=== PATIENT | male | born 1955 | race Caucasian/White ===

== ENCOUNTER 2017-08-01 04:30 | Inpatient (IN) | payer OTHER, MEDICAID ==
[~2017-08-01] VITALS: Ht 175.3 cm; Wt 79.4 kg
--- NOTE | 2017-08-01 04:47 | NUR ---
BIB [facility]. PT A/OX2 CONFUSED/ LETHARGIC. C/C OF RIGHT KNEE PAIN. SECONDARY FROM TRIP AND FALL FROM STREET [place]. NEGATIVE LOC. NEG N/V. PT RECALLS FULL EVENT. NEGATIVE DISTRESS. NEG SOB. VSS. PT STABLE CONDITION. WILL CONTINUE TO MONITOR. SAFETY MEASURES IN PLACE. CALL LIGHT WITHIN REACH.
--- NOTE | 2017-08-01 05:10 | NUR ---
PT UNDERGOING CT SCAN
--- NOTE | 2017-08-01 05:40 | NUR ---
PT STABLE CONDITION. A/O X3. VSS. NEG N/V. NEG SOB. SAFETY MEASURES IN PLACE. CALL LIGHT WITHIN REACH.
[2017-08-01] MEDS ORDERED: LEVO150T8 PO (05:54)
[2017-08-01 06:03] LABS: EOSINOPHILS % (AUTO) 1.6 % (0.0-6.0); HEMATOCRIT 31 % (39-51); HEMOGLOBIN 10.4 g/dL (13.5-17.5); LYMPHOCYTES # (AUTO) 0.9 /CMM (0.8-4.8); LYMPHOCYTES % (AUTO) 28.3 % (20.0-44.0); MEAN CORPUSCULAR HGB CONC 34 g/dl (31.0-36.0); MEAN CORPUSCULAR VOLUME 90 fL (80-96); MONOCYTES # (AUTO) 0.3 /CMM (0.1-1.30); MONOCYTES % (AUTO) 10.3 % (2.0-12.0); NEUTROPHILS # (AUTO) 1.8 /CMM (1.8-8.9); NEUTROPHILS % (AUTO) 58.8 % (43.0-81.0); PLATELET COUNT (AUTO) 72 /CMM (150-450); RDW COEFFICIENT OF VARIATION 17.1 (11.5-15.0); RED BLOOD CELL COUNT(AUTO) 3.44 MIL/uL (4.5-6.0)
--- NOTE | 2017-08-01 06:20 | NUR ---
PT STABLE CONDITION. A/O X3. VSS. NEG N/V. NEG SOB. SAFETY MEASURES IN PLACE. CALL LIGHT WITHIN REACH.
[2017-08-01 06:44] LABS: BAND % (MANUAL) 1 % (0.0-5.0); EOSINOPHILS % (MANUAL) 2 % (0-4); LYMPHOCYTES % (MANUAL) 32 % (16-48); MONOCYTES % (MANUAL) 5 % (0-11.0); NEUTROPHILS % (MANUAL) 60 (42-76)
--- NOTE | 2017-08-01 06:50 | NUR ---
PT STABLE CONDITION. A/O X3. VSS. NEG N/V. NEG SOB. SAFETY MEASURES IN PLACE. CALL LIGHT WITHIN REACH.
[2017-08-01 07:07] LABS: CALCIUM, SERUM 8.4 mg/dL (8.5-10.1); CREATININE 0.6 mg/dL (0.6-1.3); POTASSIUM 3.4 mmol/L (3.5-5.1)
[2017-08-01] MEDS ORDERED: ACETAMINOPHEN 325 MG TABLET PO PRN (08:30)
[2017-08-01] MEDS ORDERED: MAGNESIUM HYDROXIDE 30 ML UDC PO PRN (08:30)
[2017-08-01] MEDS ORDERED: ZOLPIDEM TARTRATE 5 MG TABLET PO PRN (08:30)
[2017-08-01] MEDS ORDERED: HYDROCODONE/APAP 5/325MG 1 EACH TABLET PO PRN (08:30)
[2017-08-01] MEDS ORDERED: ONDANSETRON HCL/PF 4 MG/2 ML VIAL IVP PRN (08:30)
[2017-08-01] MEDS ORDERED: MORPHINE SULFATE INJ 4 MG/ML DISP.SYRIN IV PRN (08:30)
[2017-08-01] MEDS ORDERED: Z GUARD REMEDY 2 OZ OINT TP PRN (08:30)
[2017-08-01] MEDS ORDERED: MAG HYDROX/AL HYDROX/SIMETH 30 ML UDC PO PRN (08:30)
--- NOTE | 2017-08-01 10:30 | NUR ---
MS RN RECEIVED A NEW ADMISSION FROM ER, A 61 YEAR OLD MALE, AWAKE, ALERT,ORIENTED X3,NOT IN ANY FORM DISTRESS, RESPIRATIONS EVEN AND UNLABORED, NO SOB NOTED. LUNGS ARE CLEAR, ABDOMEN SOFT,POSITIVE BOWEL SOUNDS DENIES PAIN AT THIS TIME, WILL MONITOR PATIENT'S CONDITION.
[2017-08-01] MEDS: LEVOTHYROXINE SODIUM 75 MCG TABLET PO SCH (10:39)
--- NOTE | 2017-08-01 11:00 | NUR ---
MS ADRIEN WAS SEEN BY OLI UREÑA/ ORDERS MADE AND CARRIED OUT.
[2017-08-01 11:30] VITALS: BP 134/86
[2017-08-01 16:00] VITALS: BP 105/69
--- NOTE | 2017-08-01 18:46 | NUR ---
MS RN ON BED,NO DISTRESS NOTED.
--- NOTE | 2017-08-01 19:35 | NUR ---
MS RN NOTE RECEIVED PATIENT FROM DAY SHIFT, PATIENT IS ALERT AND ORIENTEDX3, NO S/S OF RESPIRATORY DISTRESS AND DENIES PAIN AT THIS TIME. IV ON RIGHT FA IS PATENT AND INTACT, SL ONLY. SRX2, BED IN LOW POSITION, CALL LIGHT WITHIN REACH, WILL CONTINUE TO MONITOR PATIENT.
[2017-08-01 20:00] VITALS: BP 119/73
[2017-08-02 06:02] LABS: BASOPHILS % (AUTO) 0.5 % (0.0-2.0); EOSINOPHILS % (AUTO) 3.2 % (0.0-6.0); HEMATOCRIT 31 % (39-51); HEMOGLOBIN 10.9 g/dL (13.5-17.5); LYMPHOCYTES % (AUTO) 29.3 % (20.0-44.0); MEAN CORPUSCULAR HGB CONC 35 g/dl (31.0-36.0); MEAN CORPUSCULAR VOLUME 89 fL (80-96); MONOCYTES # (AUTO) 0.4 /CMM (0.1-1.30); MONOCYTES % (AUTO) 11.3 % (2.0-12.0); NEUTROPHILS # (AUTO) 1.9 /CMM (1.8-8.9); NEUTROPHILS % (AUTO) 55.7 % (43.0-81.0); PLATELET COUNT (AUTO) 78 /CMM (150-450); RDW COEFFICIENT OF VARIATION 17.5 (11.5-15.0); RED BLOOD CELL COUNT(AUTO) 3.52 MIL/uL (4.5-6.0); WHITE BLOOD COUNT (AUTO) 3.5 K/uL (4.3-11.0)
[2017-08-02 06:19] LABS: CALCIUM, SERUM 8.6 mg/dL (8.5-10.1); CREATININE 0.5 mg/dL (0.6-1.3); MAGNESIUM 1.6 mg/dL (1.8-2.4); PHOSPHORUS 3.8 mg/dL (2.5-4.9); POTASSIUM 3.4 mmol/L (3.5-5.1)
--- NOTE | 2017-08-02 06:56 | NUR ---
MS RN NOTE PATIENT IS RESTING IN BED COMFORTABLY, NO ACUTE EVENT NOTED THROUGHOUT THE SHIFT. IV ON LEFT WRIST IS PATENT AND INTACT, SL ONLY. MORNING CARE RENDERED. WILL ENDORSE TO DAY SHIFT NURSE FOR HARVEY.
--- NOTE | 2017-08-02 07:43 | NUR ---
MS RN NOTES PATIENT RECEIVED RESTING INSIDE ROOM, SLEEPING INTERMITTENTLY. EASILY AROUSABLE THROUGH VERBAL AND TACTILE STIMULI. BREATHING EVEN AND UNLABORED. NO SOB OR ACUTE DISTRESS NOTED. PATIENT DENIES ANY PAIN OR DISCOMFORT AT THIS TIME. IV SITE INTACT AND PATENT, NO BLEEDING NOTED AT THIS TIME. WILL CONTINUE TO MONITOR. MAINTAINED FALL PRECAUTIONS, BED LOCKED AND IN LOW POSITION. BILATERAL UPPER SIDE RAILS UP AND LOCKED. BED ALARM ON. CALL LIGHT WITHIN EASY REACH
[2017-08-02 08:00] VITALS: BP 122/79
[2017-08-02] MEDS: LEVOTHYROXINE SODIUM 75 MCG TABLET PO SCH (08:16)
[2017-08-02 09:03] LABS: BAND % (MANUAL) 1 % (0.0-5.0); EOSINOPHILS % (MANUAL) 3 % (0-4); LYMPHOCYTES % (MANUAL) 25 % (16-48); MONOCYTES % (MANUAL) 15 % (0-11.0); NEUTROPHILS % (MANUAL) 56 (42-76)
[2017-08-02] MEDS ORDERED: POTASSIUM CHLORIDE 20 MEQ TAB.PRT.SR PO SCH (10:00)
[2017-08-02] MEDS ORDERED: MAGNESIUM OXIDE 400 MG TABLET PO ONE (10:30)
--- NOTE | 2017-08-02 13:00 | NUR ---
MS RN NOTES PATIENT INTERVIEWED REGARDING HOME SITUATION. PATIENT UNABLE TO GIVE EXACT ADDRESS. ASKED PATIENT IF HE HAS FAMILY, PATIENT VERBALIZED "I HAVE BROTHERS IN [place]" BUT IS UNABLE TO PROVIDE INFORMATION ON SAID BROTHERS. ASKED IF PATIENT HAS MEANS OF TRANSPORTATION GOING HOME, PATIENT VERBALIZED, "JUST TURN AROUND AND GO HOME". UNABLE TO OBTAIN FURTHER INFORMATION REGARDING LIVING SITUATION. WILL CONTINUE TO MONITOR
[2017-08-02 16:00] VITALS: BP 112/69
--- NOTE | 2017-08-02 16:17 | NUR ---
MS RN NOTES PATIENT SEEN AND EXAMINED BY DR. BAIRD WITH PLAN FOR DISCHARGE IF CT SHOWS NO NEW PATHOLOGY. VERIFIED WITH DR. BAIRD THAT PATIENT WAS FOUND ON THE STREET PER ER REPORT. PATIENT UNABLE TO GIVE DETAILS ON HIS HOME. VERBALIZED HE LIVES BY HIMSELF. DR. BAIRD WITH ORDER TO HOLD DC AND HAVE SOCIAL SERVICE CONSULT. ORDERS NOTED AND CARRIED OUT. PATIENT MADE AWARE AND VERBALIZED UNDERSTANDING.
--- NOTE | 2017-08-02 18:37 | NUR ---
MS RN NOTES PATIENT RESTING INSIDE ROOM, AWAKE, ALERT AND ORIENTED WITH PERIODS OF FORGETFULNESS. VERBALLY RESPONSIVE AND RESPONDS TO VERBAL AND TACTILE STIMULI. ABLE TO FOLLOW SIMPLE INSTRUCTIONS. PATIENT BREATHING EVEN AND UNLABORED. NO SOB OR ACUTE DISTRESS NOTED AT THIS TIME. PATIENT AFEBRILE, SKIN DRY AND WARM TO TOUCH. NO CHANGES IN LOC NOTED AT THIS TIME. PATIENT HELMET ON, NOTED WITH EPISODES OF PATIENT REMOVING HELMET, REMINDED PATIENT SAFETY MEASURES AND SAFE USE OF EQUIPMENT. REMINDED REGARDING CALL LIGHT SYSTEM AND VERBALIZED UNDERSTANDING. WILL ENDORSE TO INCOMING SHIFT FOR HARVEY. BED LOCKED AND IN LOW POSITION. BILATERAL UPPER SIDE RAILS UP AND LOCKED. BED ALARM ON. CALL LIGHT WITHIN EASY REACH
--- NOTE | 2017-08-02 19:15 | NUR ---
MS RN OPENING NOTES: RECEIVED PT IN BED AND IS AWAKE AT THIS TIME. PT IS A/OX2. BED ALARM ACTIVATED. PT HAS IV AND IS INTACT. CALL LIGHT WITHIN PT'S REACH. BED KEPT IN LOW, LOCKED POSITION, AND SIDE RAILS X 3UP. WILL CONTINUE TO MONITOR PT.
[2017-08-02 20:05] VITALS: BP 146/86
--- NOTE | 2017-08-03 06:18 | NUR ---
MS RN CLOSING NOTES: ALL NEEDS WERE ATTENDED AND ANTICIPATED FOR. PT KEPT CLEAN, DRY, AND COMFORTABLE. PT RESTING IN BED COMFORTABLY. PT AWAKE AND IS CONFUSED. PT IS A/OX1. BED ALARM ACTIVATED. BED KEPT IN LOW, LOCKED POSITION, AND SIDE RAILS X 2UP. IV REMAINS INTACT. WILL ENDORSE TO AM NURSE FOR HARVEY.
[2017-08-03 07:05] LABS: CALCIUM, SERUM 8.7 mg/dL (8.5-10.1); CREATININE 0.5 mg/dL (0.6-1.3); MAGNESIUM 1.8 mg/dL (1.8-2.4); POTASSIUM 3.7 mmol/L (3.5-5.1)
--- NOTE | 2017-08-03 07:22 | NUR ---
MS RN NOTES RECEIVED PATIENT RESTING, EASILY AROUSABLE THROUGH VERBAL AND TACTILE STIMULI. BREATHING EVEN AND UNLABORED. NO SOB OR ACUTE DISTRESS NOTED. PATIENT DENIES ANY PAIN OR DISCOMFORT AT THIS TIME. IV SITE INTACT AND PATENT, NO BLEEDING NOTED AT THIS TIME. WILL CONTINUE TO MONITOR. MAINTAINED FALL PRECAUTIONS, BED LOCKED AND IN LOW POSITION. BILATERAL UPPER SIDE RAILS UP AND LOCKED. BED ALARM ON. CALL LIGHT WITHIN EASY REACH. WILL CONTINUE TO MONITOR ACCORDINGLY
[2017-08-03 08:00] VITALS: BP 118/76
[2017-08-03] MEDS: LEVOTHYROXINE SODIUM 75 MCG TABLET PO SCH (08:12)
--- NOTE | 2017-08-03 10:00 | NUR ---
RN NOTES SOCIAL SERVICE, DIONICIO AT BEDSIDE TALKING TO PATIENT.
--- NOTE | 2017-08-03 12:35 | NUR ---
Social service consult requested by Dr. Reed for possible homelessness. Pt. is a 61 year old male who was admitted to [facility] for Intraparenchymal hemorrhage of brain. DIANA met with pt. bedside. Pt. is alert and oriented x2. Pt. appears disheveled and had a strong urine odor. Pt. is unable to provide accurate information. When DIANA asked pt. if he is homeless, pt. stated no. However, pt. is unable to provide any address or location of his home. Pt. states he lives alone and continues to insist that he is not homeless. Pt. states he has a brother named Chris Martini but is unable to provide any contact information. DIANA inquired with pt. if he has his cellphone. Pt. stated he left it at home. DIANA called missing persons and spoke to Detective Ling to inquire if there is a missing persons filed for this pt. Detective Ling informed SW there is no missing persons filed on this pt, however the last address for pt. in 2017 shows [id number], [place]. Detective Ling also informed DIANA that it seems that pt. has multiple warrants as well. Detective Ling will email DIANA a photo to confirm if it is the pt. IF so, Detective Ling will send SW the DL# for the patient. DIANA also found a prescription bottle in pt's belongings with information to [facility] . DIANA got consent from pt. to contact [facility]. DIANA gave the information to shoe parts caser [employer]ash[employer] to follow up with the [place]. Addendum: 08/03/17 at 1423 by DIONICIO ORTIZ Detective Ling sent DIANA a photo to confirm if it is the pt. DIANA confirmed with Detective Ling that the photo matches the patient. Detective Ling informed DIANA that pt. has several warrants for misdemeanors. Detective Ling gave DIANA pt's DL#[id number] but was unable to provide social security number for the pt. stating they didn't have one.
[2017-08-03 16:00] VITALS: BP 116/71
--- NOTE | 2017-08-03 19:05 | NUR ---
MS RN OPENING NOTES: RECEIVED PT IN BED AND IS LAYING DOWN AT THIS TIME. PT IS A/OX1 TO SELF. PT IS CONFUSED. BED ALARM NOT WORKING. PT IS FALL RISK. IV REMAINS INTACT AND IS S/L. CALL LIGHT WITHIN PT'S REACH. BED KEPT IN LOW, LOCKED POSITION, AND SIDE RAILS X 2UP. WILL CONTINUE TO MONITOR PT.
--- NOTE | 2017-08-03 19:15 | NUR ---
RN CLOSING NOTES PATIENT IN STABLE CONDITION. ALL NEEDS ATTENDED AND PROVIDED. KEPT PATIENT SAFE AND COMFORTABLE. BED ALARM ON, BED IN LOW/LOCKED POSITION, SIDERAILS UPX2, CALL LIGHT IN REACH. ENDORSED TO NIGHT RN FOR HARVEY.
[2017-08-03 20:00] VITALS: BP 129/74
--- NOTE | 2017-08-04 06:37 | NUR ---
MS RN CLOSING NOTES: ALL NEEDS WERE ATTENDED AND ANTICIPATED FOR. PT KEPT CLEAN, DRY, AND COMFORTABLE. PT HAS HIS HELMET ON AT THIS TIME. PT RESTING IN BED COMFORTABLY. PT IS A/O X 1 TO SELF. CALL LIGHT WITHIN PT'S REACH. BED KEPT IN LOW, LOCKED POSITION, AND SIDE RAILS X 2UP. BED ALARM ACTIVATED. IV REMAINS INTACT. WILL ENDORSE TO AM NURSE FOR HARVEY.
[2017-08-04 08:00] VITALS: BP 133/76
[2017-08-04] MEDS: LEVOTHYROXINE SODIUM 75 MCG TABLET PO SCH (08:26)
[2017-08-04 16:00] VITALS: BP 105/68
--- NOTE | 2017-08-04 18:00 | NUR ---
SLEEPING ON AND OFF MOST OF DAY UP WITH PHYSICAL TX IN AM AND THEY REPORT PT. WITH DIFFICULTY FOLLOWING INSTRUCTIONS.TAKING RADHA ON AND OFF SEVERAL TIMES TODAY.SIDE RAILS UP PT. TENDS TO GET OOB BY SELF.MONITORING CLOSELY.VS STABLE.
--- NOTE | 2017-08-04 19:45 | NUR ---
RN OPENING NOTES RECEIVED REPORT FROM DAYSHIFT RN ALTA. FOUND Pt ASLEEP IN BED, EASILY AWAKENED. Pt IS A/OX1-2, FORGETFUL AND CONFUSED, BUT IS VERBAL. IV ACCESS ON LT WRIST #18G, SL. SAFETY MEASURES IN PLACE. BED LOW, LOCKED, HOB ELEVATED, SIDE RAILS UP, BED ALARM ON, CALL LIGHT AND BEDSIDE TABLE WITHIN REACH. WILL CONTINUE TO MONITOR Pt THROUGHOUT THE NIGHT FOR SAFETY.
[2017-08-04 19:55] VITALS: BP 118/83
[2017-08-04 20:00] VITALS: BP 118/83
--- NOTE | 2017-08-05 06:09 | NUR ---
RN NOTES NEW IV ACCESS STARTED ON LFA #22G, SL.
--- NOTE | 2017-08-05 06:40 | NUR ---
RN CLOSING NOTES NO SIGNIFICANT CHANGES IN Pt's CONDITION. Pt REMAINS STABLE AT THIS TIME. NO S/S OF ACUTE DISTRESS OR SOB NOTED DURING THE NIGHT. Pt RESTING IN BED WITH EVEN AND UNLABORED RESPIRATIONS, WITH EQUAL CHEST RISE AND FALL. ALL NEEDS MET AND ATTENDED TO. SAFETY MEASURES IN PLACE. WILL ENDORSE TO DAYSHIFT RN FOR Pt's HARVEY.
[2017-08-05 08:00] VITALS: BP 124/80
[2017-08-05] MEDS: LEVOTHYROXINE SODIUM 75 MCG TABLET PO SCH (08:35)
[2017-08-05 16:00] VITALS: BP 129/85
--- NOTE | 2017-08-05 18:00 | NUR ---
VERY QUIET,SLEEPING OFF AND ON.COOPERATIVE.STILL AWAITING PLACEMENT.
--- NOTE | 2017-08-05 19:30 | NUR ---
ADRIEN MS NOTES RECEIVED PATIENT IN BED AWAKE, ALERT AND ORIENTED X 1-2 , NOTED FORGETFUL WITH CONFUSION, RESPIRATIONS EVEN AND UNLABORED, WITH EQUAL RISE AND FALL OF CHEST, NO DISTRESS PRESENT, NO FACIAL GRIMACING NOTED, DENIES ANY PAIN OR DISCOMFORT AT THIS TIME, LEFT FOREARM #22 GAUGE SL INTACT AND PATENT , NO REDNESS NO INFILTRATION PRESENT TO SITE. ORIENTED TO STAFF, CALL LIGHT , CALL LIGHT KEPT WITHIN REACH , SAFETY MEASURES IN PLACE, LOW BED, BED LOCKED,CALL ALARM INTACT, SAFETY MEASURES RENDERED, FLUIDS OFFERED TOLERATED, PATIENT REMAINS CLEAN AND DRY AT THIS TIME, WILL CONTINUE TO MONITOR PATIENT REMAINS COMFORTABLE AT THIS TIME. Addendum: 08/05/17 at 2036 by PK DE LA CRUZ RN ADRIEN MS OPENING NOTES
[2017-08-05 19:59] VITALS: BP 142/88
[2017-08-05 20:00] VITALS: BP 142/88
[2017-08-06] MEDS: LEVOTHYROXINE SODIUM 75 MCG TABLET PO SCH (07:08)
--- NOTE | 2017-08-06 07:15 | NUR ---
RN MS CLOSING NOTES PATIENT IN BED AWAKE, ALERT AND ORIENTED X 1-2 , NOTED FORGETFUL WITH CONFUSION, RESPIRATIONS EVEN AND UNLABORED, WITH EQUAL RISE AND FALL OF CHEST, NO DISTRESS PRESENT, NO FACIAL GRIMACING NOTED, DENIES ANY PAIN OR DISCOMFORT AT THIS TIME, LEFT FOREARM #22 GAUGE SL INTACT AND PATENT , NO REDNESS NO INFILTRATION PRESENT TO SITE. CALL LIGHT KEPT WITHIN REACH , SAFETY MEASURES IN PLACE, LOW BED, BED LOCKED,CALL ALARM INTACT, SAFETY MEASURES RENDERED, FLUIDS OFFERED TOLERATED, PATIENT REMAINS CLEAN AND DRY AT THIS TIME, WILL CONTINUE TO MONITOR AND ENDORSE TO NEXT SHIFT PATIENT REMAINS COMFORTABLE AT THIS TIME. ALL NEEDS ATTENDED.
--- NOTE | 2017-08-06 07:30 | NUR ---
PT RECEIVED RESTING COMFORTABLY IN BED WITH EYES CLOSED. NO S/S OR C/O PAIN OR DISTRESS NOTED. SIDE RAILS UP X2, CALL LIGHT LEFT WITHIN REACH. WILL CONTINUE PLAN OF CARE.
[2017-08-06 08:00] VITALS: BP 136/82
[2017-08-06 16:00] VITALS: BP 132/91
--- NOTE | 2017-08-06 16:30 | NUR ---
PT TRANSFERRED TO SNF DISCHARGE INSTRUCTIONS GIVEN ORDERED. ALL QUESTIONS AND CONCERNS ADDRESSED. PATIENT UNABLE TO VERBALIZED UNDERSTANDING. IV REMOVED WITH CATHETER INTACT, PRESSURE DRESSING APPLIED. MEDICATION RECONCILIATION FORM COMPLETED AND COPY GIVEN TO PATIENT. REPORT GIVEN TO NISHI AT [facility]. PATIENT TRANSPORTED BY [facility] WITH ALL PERSONAL BELONGINGS. NO DISTRESS NOTED AT TIME OF DEPARTURE.
== END 2017-08-06 16:29 | DRG 85 ==
LOC: ER 04:33 → MED 09:53
PROVIDERS: ADMIT Internal Medicine; ATTEND Internal Medicine
DX: S06.300A Unspecified focal traumatic brain injury without loss of consciousness, initial encounter (principal); G93.40 Encephalopathy, unspecified; S09.90XA Unspecified injury of head, initial encounter; F07.81 Postconcussional syndrome; W01.0XXA Fall on same level from slipping, tripping and stumbling without subsequent striking against object, initial encounter; Y92.9 Unspecified place or not applicable; Z86.73 Personal history of transient ischemic attack (TIA), and cerebral infarction without residual deficits
CPT/HCPCS: 36415; 70450-TC; 80048-TC; 80305; 83735-TC; 84100-TC; 85025-TC; 87081-TC; 97112-TC; 97116-TC; 97530-TC; A4606; Z7610